=== PATIENT | male | born 1985 | race Asian ===

== ENCOUNTER 2018-06-16 10:54 | Emergency (ER) | payer OTHER ==
[2018-06-16] MEDS ORDERED: Proparacaine 0.5% Ophth Soln 15 ML Bottle EYERT ONE (11:00)
[2018-06-16] MEDS ORDERED: Fluorescein 0.6 MG Ophth Strip EYERT ONE ×2 (11:01→11:02)
--- NOTE | 2018-06-16 11:48 | EDM.PDOC ---
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 He states that he was grinding metal at work yesterday, 06/15/2018, and that he was using a face shield , but admits that he lifts it often. He noticed a foreign body sensation in his right eye in the late afternoon. He has burning, but denies decreased vision, blurry vision, or photophobia. No prior right eye injury. The patient has not instilled any [id number] eyedrops. The patient does not recall when his last tetanus vaccination was. The patient's PCP is at [facility]. 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 Right Eye Pain Score (Numeric/FACES): 5 - Related Data Allergies Allergy/AdvReac Type Severity Reaction Status Date / Time No Known Allergies Allergy Verified 06/16/18 11:08 Home Meds: Home Meds Albuterol [Proventil HFA] 1 applic INH ASDIRECTED 06/16/18 [History] Ketorolac [Acular 0.5% Ophth Soln] 1 drop EYERT Q6H PRN #1 bottle 06/16/18 [Rx] guaiFENesin [Mucinex] 1 applic PO DAILY 06/16/18 [History] Past Medical History - Past Health History Medical/Surgical History: Denies Medical/Surgical History Social & Family History - Tobacco Use Smoking Status *Q: Never Smoker - Caffeine Use Caffeine Use: Reports: Coffee, Energy Drinks, Soda, Tea - Alcohol Use Alcohol Use History: Yes Alcohol Use Frequency: Socially - Recreational Drug Use Recreational Drug Use: No - Living Situation & Occupation Living situation: Reports: , with Spouse, with Family (2 kids, niece, [id number]) 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 ED EXAM GENERAL W FULL EYE - Physical Exam Exam: See Below Exam Limited By: No Limitations General Appearance: Alert, WD/WN, No Apparent Distress Eyelids: Bilateral: Normal Appearance Conjunctiva & Sclera: Right: Injected, Left: Normal Appearance Cornea Exam: Right: Foreign Body (tiny speck at 7:00 position, seen with fluorescein under Wood's lamp), Examined with Flourescein, Left: Normal Appearance Extraocular Movements: Bilateral: Intact Pupils: Normal Accommodation Pupillary Size: Bilateral: 5 mm Pupillary Reaction: Bilateral: Brisk Anterior Chamber: Bilateral: Normal Appearance ED EYE w/ Add Procedure - Eye Procedure Alcaine Drops Administered: Yes Eye FB Removal: Removal w/ Cotton Swab, Removal w/ Needle (under slit lamp) Course - Vital Signs Last Recorded V/S: Last Vital Signs Temp 36.8 C 06/16/18 12:05 Pulse 66 06/16/18 12:05 Resp 16 06/16/18 12:05 BP 120/81 06/16/18 12:05 Pulse Ox 100 06/16/18 12:05 - Orders/Labs/Meds Meds: Medications Discontinued Medications Generic Name Dose Route Start Last Admin Trade Name Freq PRN Reason Stop Dose Admin Diphtheria/Tetanus/Acell Pertussis 0.5 ml 06/16/18 11:54 06/16/18 11:59 Adacel IM 06/16/18 11:55 0.5 ml .ONCE ONE Administration Fluorescein Sodium 0.6 mg 06/16/18 11:01 06/16/18 12:13 Ful-Shy EYERT 06/16/18 11:02 Not Given ONETIME ONE Fluorescein Sodium 0.6 mg 06/16/18 11:02 06/16/18 11:14 Ful-Shy EYERT 06/16/18 11:03 0.6 mg ONETIME ONE Administration Proparacaine HCl 2 ml 06/16/18 11:00 06/16/18 11:39 Proparacaine 0.5% Ophth Soln EYERT 06/16/18 11:01 2 drop ONETIME ONE Administration - Re-Assessments/Exams Free Text/Narrative Re-Assessment/Exam: 06/16/18 11:43 A tiny metallic foreign body was identified at about the 7:00 position with fluorescein under Wood's lamp. The metallic foreign body was then removed using a 27-gauge needle and wet cotton swab under slit lamp. The patient tolerated the procedure well. I will prescribe Acular, and I would like him to follow-up with an [facility] on 06/18/2018. The patient will receive a tetanus vaccination before being discharged. Departure - Departure Time of Disposition: 11:44 Disposition: Home, Self-Care 01 Condition: Good Clinical Impression: Foreign body of right eye - Discharge Information *PRESCRIPTION DRUG MONITORING PROGRAM REVIEWED*: Not Applicable *COPY OF PRESCRIPTION DRUG MONITORING REPORT IN PATIENT BRUNO: Not Applicable Prescriptions: Ketorolac [Acular 0.5% Ophth Soln] 1 drop EYERT Q6H PRN #1 bottle PRN Reason: Pain Instructions: Eye Foreign Body, [id number] Referrals: PCP,None [Primary Care Provider] - Forms: ED Department Discharge Additional Instructions: You were seen in the emergency room for the sensation of a foreign body in your right eye after grinding metal at work yesterday. On examination, a small john of metal was found in your right cornea. This was removed under slit lamp. A prescription for the eye-pain medicine Acular has been sent to the [facility] , [facility]. Instill 1 drop of Acular in your right eye up to every 6 hours, as needed for discomfort. We recommend that you follow-up with an [facility] this coming Monday, 2018, to ensure that your eye is healing properly. You received a tetanus vaccination during her ER visit. If any other problems, please do not hesitate to return to the ER.
[2018-06-16] MEDS ORDERED: Diphtheria,Pertussis(Acell),Tetanus Vaccine 0.5 ML Syringe IM ONE (11:54)
== END 2018-06-16 12:05 | disposition home or self-care (01) ==
LOC: JD.ED 10:54
DX: T15.01XA Foreign body in cornea, right eye, initial encounter (principal); Z23 Encounter for immunization; Z79.899 Other long term (current) drug therapy
CPT/HCPCS: 65222; 90471; 90700; 99283